=== PATIENT | female | born 1980 | race Caucasian/White ===

== ENCOUNTER 2017-04-18 06:39 | Day surgery (SDC) | payer BC ==
[~2017-04-18 06:39] MED LIST: Lactated Ringers 1,000 ML IV SCH; Lidocaine 1%/Sod Bicarbonate in NS 8.4% 1 ML Syringe PRN; Sodium Chloride 0.9% 10 ML Syringe FLUSH PRN
--- NOTE | 2017-04-18 07:33 | PCM.PREANE ---
Preanesthetic Assessment - Anesthesia/Transfusion/Family Hx Anesthesia History: Prior Anesthesia Without Reaction Family History of Anesthesia Reaction: No Transfusion History: No Prior Transfusion(s) - Review of Systems General: No Symptoms Pulmonary: No Symptoms Cardiovascular: No Symptoms Gastrointestinal: No symptoms Neurological: No Symptoms Other: Reports: None - Physical Assessment NPO Status Date: 04/17/17 NPO Status Time: 00:00 Pulse: 81 O2 Sat by Pulse Oximetry: 97 Respiratory Rate: 16 Blood Pressure: 121/71 Temperature: 36.7 C Height: 1.66 m ASA Class: 2 Mental Status: Alert & Oriented x3 Airway Class: Mallampati = 1 Dentition: Reports: Normal Dentition Thyro-Mental Finger Breadths: 3 Mouth Opening Finger Breadths: 3 ROM/Head Extension: Full Lungs: Clear to auscultation, Normal respiratory effort Cardiovascular: Regular Rate, Regular Rhythm, No Murmurs - Lab Values: Laboratory Last Values WBC 10.62 K/mm3 (3.98-10.04) H 04/18/17 06:52 RBC 4.51 M/mm3 (3.98-5.22) 04/18/17 06:52 Hgb 11.8 gm/L (11.2-15.7) 04/18/17 06:52 Hct 38.0 % (34.1-44.9) 04/18/17 06:52 MCV 84.3 fl (79.4-94.8) 04/18/17 06:52 MCH 26.2 pg (25.6-32.2) 04/18/17 06:52 MCHC 31.1 g/dl (32.2-35.5) L 04/18/17 06:52 RDW Std Deviation 45.8 fL (36.4-46.3) 04/18/17 06:52 Plt Count 512 K/mm3 (182-369) H 04/18/17 06:52 MPV 8.8 fl (9.4-12.3) L 04/18/17 06:52 Neut % (Auto) 65.4 % (34.0-71.1) 04/18/17 06:52 Lymph % (Auto) 25.0 % (19.3-51.7) 04/18/17 06:52 Elbert % (Auto) 6.3 % (4.7-12.5) 04/18/17 06:52 Eos % (Auto) 2.6 (0.7-5.8) 04/18/17 06:52 Baso % (Auto) 0.5 % (0.1-1.2) 04/18/17 06:52 Neut # (Auto) 6.94 K/mm3 (1.56-6.13) H 04/18/17 06:52 Lymph # (Auto) 2.66 K/mm3 (1.18-3.74) 04/18/17 06:52 Elbert # (Auto) 0.67 K/mm3 (0.24-0.36) H 04/18/17 06:52 Eos # (Auto) 0.28 K/mm3 (0.04-0.36) 04/18/17 06:52 Baso # (Auto) 0.05 K/mm3 (0.01-0.08) 04/18/17 06:52 - Allergies Allergies/Adverse Reactions: Allergies Allergy/AdvReac Type Severity Reaction Status Date / Time acetaminophen [From Percocet] Allergy Nausea and Verified 04/17/17 16:11 Vomiting oxycodone [From Percocet] Allergy Nausea and Verified 04/17/17 16:11 Vomiting - Anesthesia Plan Pre-Op Medication Ordered: None - Acknowledgements Anesthesia Type Planned: General Anesthesia Pt an Appropriate Candidate for the Planned Anesthesia: Yes Alternatives and Risks of Anesthesia Discussed w Pt/Guardian: Yes Pt/Guardian Understands and Agrees with Anesthesia Plan: Yes PreAnesthesia Questionnaire HEENT History: Reports: None Cardiovascular History: Reports: None Respiratory History: Reports: None Genitourinary History: [employer] History: Reports: Other OB/BYN History: dysmenorrhea, hypermenorrhea, menorrhagia, pelvic pain Neurological History: Reports: Migraines Psychiatric History: Reports: Anxiety, Depression Endocrine/Metabolic History: Reports: None Hematologic History: Reports: Anemia Immunologic History: Reports: None Oncologic (Cancer) History: Reports: None Dermatologic History: Reports: None - Past Surgical History Head Surgeries/Procedures: Reports: None HEENT Surgical History: Reports: None Cardiovascular Surgical History: Reports: None GI Surgical History: Reports: Appendectomy, Cholecystectomy Female Surgical History: Reports: Section, Tubal Ligation Endocrine Surgical History: Reports: None Musculoskeletal Surgical History: Reports: Other (See Below) Other Musculoskeletal Surgeries/Procedures:: knee surgery - SUBSTANCE USE Smoking Status *Q: Former Smoker Tobacco Use Within Last Twelve Months: Cigarettes Second Hand Smoke Exposure: No Days Per Week of Alcohol Use: 1 Number of Drinks Per Day: 0 Total Drinks Per Week: 0 Recreational Drug Use History: No - HOME MEDS Home Medications: Home Meds Ferrous Sulfate [Iron] 325 mg PO DAILY 04/17/17 [History] Plexus Vitamins 1 dose PO ASDIRECTED 04/17/17 [History] - CURRENT (IN HOUSE) MEDS Current Meds: Current Medications Lactated Ringer's (Ringers, Lactated) 1,000 mls @ 125 mls/hr IV ASDIRECTED MORGAN Stop: 04/18/17 23:00 Lidocaine/Sodium Bicarbonate (Buffered Lidocaine 1% In Ns 8.4%) 0.25 ml .XX ONETIME PRN PRN Reason: Prior to IV Start Stop: 04/18/17 18:00 Sodium Chloride (Saline Flush) 10 ml FLUSH ASDIRECTED PRN PRN Reason: Keep Vein Open Stop: 04/18/17 18:00
[2017-04-18] MEDS ORDERED: Propofol 200 MG/20 ML SDV ONE (07:48)
[2017-04-18] MEDS ORDERED: Ondansetron 4 MG/2 ML SDV ONE (07:48)
[2017-04-18] MEDS ORDERED: Midazolam 1 MG/ML 2 ML SDV ONE (07:48)
[2017-04-18] MEDS ORDERED: Rocuronium 50 MG/5 ML Vial ONE (07:48)
[2017-04-18] MEDS ORDERED: fentaNYL 250 MCG/5 ML SDV ONE (07:49)
[2017-04-18] MEDS ORDERED: diphenhydrAMINE 50 MG/ML SDV ONE (08:21)
[2017-04-18] MEDS ORDERED: Dexamethasone 4 MG/ML SDV ONE (08:21)
[2017-04-18] MEDS ORDERED: Lactated Ringers 1,000 ML ONE (08:23)
[2017-04-18] MEDS ORDERED: Ketorolac 30 MG/ML SDV ONE (08:38)
--- NOTE | 2017-04-18 08:46 | PCM.POSTAN ---
POST ANESTHESIA ASSESSMENT - MENTAL STATUS Mental Status: somnolent - VITAL SIGNS Pulse Rate: 117 SaO2: 99 Resp Rate: 9 Blood Pressure: 129/81 Temperature: 36.2 C - RESPIRATORY Respiratory Status: respiratory rate WNL, airway patent, O2 saturation stable, supplemental oxygen - CARDIOVASCULAR CV Status: pulse rate WNL, blood pressure stable - GASTROINTESTINAL GI Status: no symptoms - PAIN Pain Score: 0 - POST OP HYDRATION Hydration Status: adequate & stable - OBSERVATIONS Free Text/Narrative:: no anesthesia complications noted
--- NOTE | 2017-04-18 08:47 | PCM.OPNOTE ---
- General Post-Op/Procedure Note Date of Surgery/Procedure: 04/18/17 Operative Procedure(s): Dilatation curettage hysteroscopy (24338), endometrial ablation, [employer]Sure, (01224) Pre Op Diagnosis: Hypermenorrhea with irregular menses, dysmenorrhea, anemia Post-Op Diagnosis: Same Anesthesia Technique: General ET Tube Primary Surgeon: Royal Hwang Anesthesia Provider: Sonny Gamino Fluid Replacement, Intraop: 1,200 Output, Urine Amount: 20 EBL in mLs: 5 Drain/Tube Comments:: None Complications: None Condition: Good Free Text/Narrative:: Patient was transported to operating room #1, SCDs in place and functioning and patient received 2 g of Ancef intravenously prior to the procedure, and placed under general anesthesia with endotracheal intubation in the low dorsal lithotomy position examination under anesthesia revealed anterior uterus no adnexal masses the patient was prepared and draped in sterile fashion timeout performed confirming name date of and procedure as D&C hysteroscopy and endometrial ablation the uterus was sounded to 10.5 cm with the cervical canal length of 4 cm making the endometrial cavity length 6.5 cm for the purpose of the ablation hysteroscopy was performed no endometrial polyps or septum both tubal ostia were easily identified D&C was performed all tissue sent to pathology for tissue evaluation The endometrial ablation was performed confirming the endometrial cavity length of 6.5 cm with 4.3 cm power 154 time 1 minute 15 seconds the endometrial ablation was accomplished without difficulty post ablation hysteroscopy showed good charring of the tissue as would be expected Once a picture taken image 001 right tubal ostia image 002 left tubal ostia image 003 shows the fundus of the endometrial cavity image 004 shows some tissue at the lower uterine segment which was removed with D&C image 005 shows the endocervical canal to. Portion image 006 post ablation charring Patient transported postanesthesia care unit in satisfactory condition no blood transfusions were required not anticipated Nusser condition should change
[2017-04-18] MEDS ORDERED: Acetaminophen/HYDROcodone 325-5 MG Tab PO SCH (09:00)
[2017-04-18] MEDS: fentaNYL 100 MCG/2 ML SDV IVPUSH PRN ×2 (09:40→09:58)
[2017-04-18 10:33] VITALS: BP 120/72
== END 2017-04-18 10:45 | disposition home or self-care (01) ==
LOC: JD.SDS 06:39
PROVIDERS: ATTEND Obstetrics & Gynecology
DX: N92.0 Excessive and frequent menstruation with regular cycle (principal); N94.6 Dysmenorrhea, unspecified; D64.9 Anemia, unspecified; F32.9 Major depressive disorder, single episode, unspecified; Z88.8 Allergy status to other drugs, medicaments and biological substances; F41.9 Anxiety disorder, unspecified; Z79.899 Other long term (current) drug therapy; Z90.49 Acquired absence of other specified parts of digestive tract; Z98.890 Other specified postprocedural states; Z98.51 Tubal ligation status; Z87.891 Personal history of nicotine dependence; Z72.0 Tobacco use
CPT/HCPCS: 36415; 58563; 84702; 85025; 88305; A9270; J1100; J1200; J1885; J2250; J2405; J3010; J7120; 00952; J2704